=== PATIENT | male | born 1960 | race Caucasian/White ===

== ENCOUNTER 2024-11-03 07:02 | Inpatient (IN) | payer MEDICAID ==
[~2024-11-03] VITALS: Ht 182.9 cm; Wt 97.0 kg
--- NOTE | 2024-11-03 07:36 | ED.PDOC ---
HPI (NEURO) HPI Comments 64 year old male presents to the ED with a chief complaint of head injury s/p fall onset yesterday. Patient states he experienced a syncope episode yesterday, fell and hit his head. Patient woke up today experiencing headache as well as dizziness, described as room was spinning, improved when he closed his eyes and LT calf pain, had a DVT about 5 years ago. Upon ED arrival patient noticed symptoms have improved. Denies congestion, cough, nausea, vomiting, diarrhea, abdominal pain, chest pain, shortness of breath. No other symptoms or modifying factors present at this time. Chief Complaint: Headache Time Seen by MD: 07:29 Reviewed Notes: Medications, Allergies Information Source: Patient Mode of Arrival: Ambulatory Severity: Moderate Headache Severity: Moderate Timing: Days Duration: Since onset Prehospital treatment: None Headache Quality: Aching Headache Location: Generalized Onset: At rest Circumstances: Spontaneous Symptoms: Syncope, Vertigo, Change of vision Before: Normal After: Headache History of: None Modifying factors: Other (eyes closed ) Associated Signs and Symptoms: Headache, Blurred Vision Past Medical History PAST MEDICAL HISTORY: Denies Surgical History: Denies all surgeries Family History Family History: Unknown Social History Smoker: Non-Smoker Alcohol: Denies ETOH Use Drugs: Denies Drug Use Lives In: Home Constitutional: denies: chills, diaphoresis, fatigue, fever, malaise, sweats, weakness, others EENTM: denies: blurred vision, double vision, ear bleeding, ear discharge, ear drainage, ear pain, ear ringing, eye pain, eye redness, hearing loss, mouth pain, mouth swelling, nasal discharge, nose bleeding, nose congestion, nose pain, photophobia, tearing, throat pain, throat swelling, voice changes, others Respiratory: denies: cough, hemoptysis, orthopnea, SOB at rest, shortness of breath, SOB with excertion, stridor, wheezing, others Cardiovascular: denies: chest pain, dizzy spells, diaphoresis, Dyspnea on exertion, edema, irregular heart beat, left arm pain, lightheadedness, palpitati ons, PND, syncope, others Gastrointestinal: denies: abdomen distended, abdominal pain, blood streaked bowels, constipated, diarrhea, dysphagia, difficulty swallowing, hematemesis, melena, nausea, poor appetite, poor fluid intake, rectal bleeding, rectal pain, vomiting, others Genitourinary: denies: burning, dysuria, flank pain, frequency, hematuria, incontinence, penile discharge, penile sore, pain, testicle pain, testicle swelling, urgency, others Neurological: reports: dizziness, others (syncope, head injury ); denies: faint ing, headache, left sided numbness, left sided weakness, numbness, paresthesia, pre-existing deficit, right sided numbness, right sided weakness, seizure, speech problems, tingling, tremors, weakness Musculoskeletal: reports: others (LT calf pain ); denies: back pain, gout, joint pain, joint swelling, muscle pain, muscle stiffness, neck pain Integumetry: denies: bruises, change in color, change in hair/nails, dryness, laceration, lesions, lumps, rash, wounds, others Allergic/Immunocompromised: denies: Difficulty Healing, Frequent Infections, Hives, Itching, others Hematologic/Lymphatic: denies: anemia, blood clots, easy bleeding, easy bruising, swollen glands, others Endocrine: denies: excessive hunger, excessive sweating, excessive thirst, excessive urination, flushing, intolerance to cold, intolerance to heat, unexplained weight gain, unexplained weight loss, others Psychiatric: denies: anxiety, bipolar disorder, depression, hopeless, panic disorder, schizophrenia, sleepless, suicidal, others All Other Systems: Reviewed and Negative Physical Exam General Appearance: No Apparent Distress, Normal HEENT: Normal ENT Inspection, Pharynx Normal, TMs Normal Neck: Full Range of Motion, Non-Tender, Normal, Normal Inspection Respiratory: Chest Non-Tender, Lungs Clear, No Accessory Muscle Use, No Respiratory Distress, Normal Breath Sounds Cardiovascular: No Edema, No JVD, No Murmur, No Gallop, Normal Peripheral Pulses, Regular Rate/Rhythm Breast Exam: Deferred Gastrointestinal: No Organomegaly, Non Tender, No Pulsatile Mass, Normal Bowel Sounds, Soft Genitalia: Deferred Pelvic: Deferred Rectal: Deferred Extremities: Calf tenderness, Leg edema, Normal capillary refill, Normal inspection, Normal range of motion, Non-tender Musculoskeletal : Apperance: Normal Neurologic: Alert, accounting methods analyst II-XII nml as Tested, No Motor Deficits, Normal Affect, Normal Mood, No Sensory Deficits Cerebellar Function: Normal Reflexes: Normal Skin: Dry, Normal Color, Warm Lymphatic: No Adenopathy EKG EKG : Pulse Rate (adult): 186 Cardiac Rhythm: NSR (59) Block: LBBB Comments sinus rhythm with 59 bpm. Left bundle branch block Was a procedure done? Was a procedure done?: No X-Ray, Labs, Meds, VS Vital Signs Date Time Temp Pulse Resp B/P (MAP) Pulse Ox O2 Delivery O2 Flow Rate FiO2 11/03/24 10:39 97.4 55 16 134/81 (98) 97 97.4 11/03/24 10:39 55 16 97 Room Air 11/03/24 07:59 186 11/03/24 07:48 59 11/03/24 07:25 97.9 60 20 172/84 (113) 96 Lab Test 11/03/24 08:51 11/03/24 07:39 11/03/24 07:31 Range/Units Troponin I High Sensitivity < 3 L 3 L </=54 ng/L White Blood Count 5.8 4.4-10.8 10^3/uL Red Blood Count 5.40 4.5-5.90 10^6/uL Hemoglobin 16.3 13.5-17.5 g/dL Hematocrit 47.3 41.0-53.0 % Mean Corpuscular Volume 87.5 80.0-100.0 fL Mean Corpuscular Hemoglobin 30.2 28.0-32.0 pg Mean Corpuscular Hemoglobin Concent 34.5 32.0-36.0 g/dL Red Cell Distribution Width 12.9 11.8-14.3 % Platelet Count 225 140-450 10^3/uL Mean Platelet Volume 8.1 6.9-10.8 fL Neutrophils (%) (Auto) 73.1 37.0-80.0 % Lymphocytes (%) (Auto) 18.2 10.0-50.0 % Monocytes (%) (Auto) 7.9 0.0-12.0 % Eosinophils (%) (Auto) 0.6 0.0-7.0 % Basophils (%) (Auto) 0.2 0.0-2.0 % Neutrophils # (Auto) 4.2 1.6-8.6 10 ^3/uL Lymphocytes # (Auto) 1.1 0.4-5.4 10 ^3/uL Monocytes # (Auto) 0.5 0-1.3 10 ^3/uL Eosinophils # (Auto) 0 0-0.8 10 ^3/uL Basophils # (Auto) 0 0-0.2 10 ^3/uL Nucleated Red Blood Cells 0.0 % D-Dimer, Quantitative 0.71 H 0.0-0.49 mg/L FEU Sodium Level 135 L 136-145 mmol/L Potassium Level 4.4 3.5-5.1 mmol/L Chloride Level 102 98-107 mmol/L Carbon Dioxide Level 25 20-31 mmol/L Anion Gap 8 5-15 Blood Urea Nitrogen 15 9-23 mg/dL Creatinine 1.03 0.700-1.30 mg/dL Glomerular Filtration Rate Calc 82 >90 mL/min BUN/Creatinine Ratio 14.6 10.0-20.0 Serum Glucose 374 H 74-106 mg/dL Calcium Level 9.5 8.7-10.4 mg/dL Total Bilirubin 0.8 0.2-1.0 mg/dL Aspartate Amino Transferase (AST) 36 13-40 U/L Alanine Aminotransferase (ALT) 63 H 7-40 U/L Alkaline Phosphatase 78 46-116 U/L Total Protein 7.0 5.7-8.2 g/dL Albumin 4.5 3.2-4.8 g/dL POC Glucose 367 H 70-106 mg/dl [place] [address] Ph: [phone] DIAGNOSTIC IMAGING Diagnostic Imaging Report : [id number] Signed PATIENT: WOODY ESCOBAR ACCT: [id number] UNIT: [id number] : 1960 LOC: ER ROOM / BED: / AGE / SEX: 64 / M ADM STATUS: REG ER SERVICE 0729 ORDERING PHYSICIAN: ALEXX NYE MD PROCEDURE(s): HWOCT - HEAD WITHOUT CONTRAST REASON: dizziness ORDER NUMBER(s): [id number], ACCESSION NUMBER(s): [id number] EXAM: CT HEAD WITHOUT CONTRAST HISTORY: dizziness COMPARISON: None TECHNIQUE: Axial images were obtained and reformatted in coronal and sagittal planes. All CT scans at this medical facility are performed using dose modulation techniques as appropriate to a performed exam including the following: Automated exposure control was utilized; adjustment of the MA and/or KV according to patient size; and use of iterative reconstruction technique. CT Dose: CTDI volume is 57.79 mGy. Dose-length product is 926.35 mGy*cm FINDINGS: Supratentorial Region: No evidence for large acute territorial ischemia. No intracranial hemorrhage is noted. Posterior Fossa: No acute abnormality. Brainstem: Unremarkable. Sellar/Suprasellar Region: Unremarkable. Ventricles, Cisterns, Sulci: Age-appropriate. Orbits: Unremarkable. Paranasal Sinuses: Unremarkable. Mastoid Air Cells: Unremarkable. Vasculature: Intracranial arterial calcified plaque formation noted. Bones/Soft Tissues: No acute abnormality. Other: None. IMPRESSION: 1. No acute intracranial process. ATED BY: CYDNEY ZEPEDA MD DICTATED DATE/TIME: 11/03/24814 SIGNED BY: CYDNEY ZEPEDA MD SIGNED DATE/TIME: 11/03/24814 CC: [place] [address] Ph: [phone] DIAGNOSTIC IMAGING Diagnostic Imaging Report : [id number] Signed PATIENT: WOODY ESCOBAR ACCT: [id number] UNIT: [id number] : 1960 LOC: ER ROOM / BED: / AGE / SEX: 64 / M ADM STATUS: REG ER SERVICE 7 ORDERING PHYSICIAN: ALEXX NYE MD PROCEDURE(s): LLDVT - LT Lower DVT REASON: elevated ddimer and LLE pain ORDER NUMBER(s): [id number], ACCESSION NUMBER(s): [id number] Clinical History: elevated ddimer and LLE pain Comparison: None Technique: Duplex Doppler evaluation of the deep venous system of the left lower extremity from the common femoral vein to the popliteal vein including color Doppler and spectral/pulsed waveform analysis was performed. Findings: The common femoral vein demonstrates appropriate compressibility and waveform variability. There is compressibility/patency of the great saphenous vein at the proximal thigh. The femoral vein demonstrates appropriate compressibility and waveform variability. The deep femoral vein demonstrates appropriate compressibility and waveform variability. The popliteal vein demonstrates appropriate compressibility and waveform variability. There is normal compressibility at the tibioperoneal trunk. Impression: No left deep venous thrombosis. If clinical concern/symptoms persist or worsen, short-interval follow-up study is suggested. ATED BY: CRISTIN MARTELL MD DICTATED DATE/TIME: 11/03/24923 SIGNED BY: CRISTIN MARTELL MD SIGNED DATE/TIME: 11/03/24923 CC: X-Ray, Labs, Meds, VS Comment This 64-year-old male presents secondary to a syncopal episode where he could completely passed out for an unknown duration. Patient was complaining of right calf pain and chest discomfort. He was history of DVTs in the past. He had elevated D-dimer. As such, we will gently lower extremity CT of the chest were done. Both General show any acute pathology suggestive of a PE. However, secondary to the patient's history of syncope, I will admit the patient for further workup and management. Time of 1ST Reevaluation: 07:59 Reevaluation 1ST: Unchanged Patient Education/Counseling: Diagnosis, Treatment, Prognosis Family Education/Counseling: No Family Present Additional Information The following tests were ordered, and results were reviewed by me: D-DIMER, TROP -x3, CBC, CMP,L CT HEAD WITHOUT CONTRAST, EKG I reviewed and agreed with the following test results read by other providers: CT HEAD WITHOUT CONTRAST, I discussed treatment and results with medical personnel and patient Departure 1 Departure Time of Disposition: 11:57 Impression: Primary Impression: Syncope Additional Impression: Calf pain Disposition: ADMITTED INPATIENT Admit to: Tele Condition: Serious Critical Care Note Critical Care Time?: No Stability Stability form required: No I personally scribed for ALEXX NYE MD ([email or web address]) on 11/03/24 at 07:36. Electronically submitted by Stefany Sky ([email or web address]). I personally scribed for ALEXX NYE MD ([email or web address]) on 11/03/24 at 07:37. Electronically submitted by Stefany Sky ([email or web address]). I personally scribed for ALEXX NYE MD ([email or web address]) on 11/03/24 at 07:59. Electronically submitted by Stefany Sky ([email or web address]). I personally scribed for [facility]E MD [facility] on 11/03/24 at 08:34. Electronically submitted by Stefany Sky ([email or web address]). I personally scribed for ALEXX NYE MD ([facility]) on 11/03/24 at 08:38. Electronically submitted by Stefany Sky ([email or web address]). I personally scribed for [facility]E MD [facility] on 11/03/24 at 09:33. Electronically submitted by Stefany Sky ([email or web address]). I personally scribed for ALEXX NYE MD ([facility] on 11/03/24 at 09:33. Maci ctronically submitted by Stefany Sky ([email or web address]). ALEXX NYE MD Nov 03, 2024 07:36
--- NOTE | 2024-11-03 07:50 | ECG ---
[facility] Test Date: 2024-11-03 Test Time: 07:48:44 Pat Name: WOODY ESCOBAR Department: ER Room: Gender: M [employer]: KATEY : 1960 Requested By: ALEXX NYE Order Number: [id number] Reading MD: Phani Matos Measurements Intervals [place] Rate: 59 P: 44 DE: 186 QRS: -21 QRSD: 153 T: 97 QT: 479 QTc: 475 Interpretive Statements Sinus rhythm Left bundle branch block Electronically Signed On 11-03-2024 13:17:53 PST by Phani Matos Please click the below link to view image of tracing.
[2024-11-03 07:54] LABS: Basophils # (auto) 0 10 ^3/uL (0-0.2); Basophils % (auto) 0.2 % (0.0-2.0); Eosinophils # (auto) 0 10 ^3/uL (0-0.8); Eosinophils % (auto) 0.6 % (0.0-7.0); Hematocrit 47.3 % (41.0-53.0); Hemoglobin 16.3 g/dL (13.5-17.5); Lymphocytes # (auto) 1.1 10 ^3/uL (0.4-5.4); Lymphocytes % (auto) 18.2 % (10.0-50.0); Mean Corpuscular Hemoglobin 30.2 pg (28.0-32.0); Mean Corpuscular Hgb Conc. 34.5 g/dL (32.0-36.0); Mean Corpuscular Volume 87.5 fL (80.0-100.0); Monocytes # (auto) 0.5 10 ^3/uL (0-1.3); Monocytes % (auto) 7.9 % (0.0-12.0); Neutrophils # (auto) 4.2 10 ^3/uL (1.6-8.6); Neutrophils % (auto) 73.1 % (37.0-80.0); Platelet Count (auto) 225 10^3/uL (140-450); Red Cell Distribution Width 12.9 % (11.8-14.3); White Blood Cell 5.8 10^3/uL (4.4-10.8)
[2024-11-03 08:04] LABS: Albumin 4.5 g/dL (3.2-4.8); Alkaline Phosphatase 78 U/L (46-116); Anion Gap 8 (5-15); Aspartate Aminotransferase 36 U/L (13-40); BUN/Creatinine Ratio 14.6 (10.0-20.0); Bilirubin, Total 0.8 mg/dL (0.2-1.0); Blood Urea Nitrogen 15 mg/dL (9-23); Calcium 9.5 mg/dL (8.7-10.4); Carbon Dioxide 25 mmol/L (20-31); Chloride 102 mmol/L (98-107); Potassium 4.4 mmol/L (3.5-5.1)
[2024-11-03 08:05] LABS: Sodium 135 mmol/L (136-145)
[2024-11-03 08:06] LABS: Alanine Aminotransferase 63 U/L (7-40); Glucose 374 mg/dL (74-106)
--- NOTE | 2024-11-03 08:17 | DVH ---
EXAM: CT HEAD WITHOUT CONTRAST HISTORY: dizziness COMPARISON: None TECHNIQUE: Axial images were obtained and reformatted in coronal and sagittal planes. All CT scans at this medical facility are performed using dose modulation techniques as appropriate t o a performed exam including the following: Automated exposure control was utilized; adjustment of th e MA and/or KV according to patient size; and use of iterative reconstruction technique. CT Dose: CTDI volume is 57.79 mGy. Dose-length product is 926.35 mGy*cm FINDINGS: Supratentorial Region: No evidence for large acute territorial ischemia. No intracranial hemorrhage is noted. Posterior Fossa: No acute abnormality. Brainstem: Unremarkable. Sellar/Suprasellar Region: Unremarkable. Ventricles, Cisterns, Sulci: Age-appropriate. Orbits: Unremarkable. Paranasal Sinuses: Unremarkable. Mastoid Air Cells: Unremarkable. Vasculature: Intracranial arterial calcified plaque formation noted. Bones/Soft Tissues: No acute abnormality. Other: None. IMPRESSION: 1. No acute intracranial process.
[2024-11-03] MEDS: IOHEXOL 350 MG/ML 100ML IJ ONE (08:38)
--- NOTE | 2024-11-03 09:25 | DVH ---
Clinical History: elevated ddimer and LLE pain Comparison: None Technique: Duplex Doppler evaluation of the deep venous system of the left lower extremity from the common femor al vein to the popliteal vein including color Doppler and spectral/pulsed waveform analysis was perfo rmed. Findings: The common femoral vein demonstrates appropriate compressibility and waveform variability. There is compressibility/patency of the great saphenous vein at the proximal thigh. The femoral vein demonstrates appropriate compressibility and waveform variability. The deep femoral vein demonstrates appropriate compressibility and waveform variability. The popliteal vein demonstrates appropriate compressibility and waveform variability. There is normal compressibility at the tibioperoneal trunk. Impression: No left deep venous thrombosis. If clinical concern/symptoms persist or worsen, short-interval follow-up study is suggested.
--- NOTE | 2024-11-03 10:07 | DVH ---
CLINICAL INFORMATION: 64 years old, Male; elevated ddimer. TECHNIQUE: Axial CTA images of the chest were obtained after the uneventful administration of 100 mL of Omnipaque 350 IV contrast. Coronal and sagittal reformatted images and MIP images were obtained, reviewed, and stored. One or more of the following dose reduction techniques were used: Automated exp osure control. Adjustment of mA and/or kV according to patient size. CTDIvol = 23.83, 17.76, 0.07, 0.07 mGy DLP = 898.26 mGy-cm COMPARISON: None FINDINGS: Pulmonary arteries: No evidence of pulmonary embolism. Aorta: No aneurysm or dissection. Cardiac: Heart size is within normal limits. Dense coronary artery calcification. Mediastinum/radames: No mass or adenopathy. Lungs: Respiratory motion artifact limits evaluation for subtle findings. Atelectasis in the lung bas es. No focal consolidation. No pneumothorax or pleural effusion. Mild ground-glass attenuation in the lower lobes, may be due to respiratory motion artifact and/or subsegmental atelectasis. Infectious o r inflammatory etiology would be less likely but not excluded. Chest wall: No mass or other abnormality. Upper abdomen: Hepatic steatosis. Bones: No fracture or suspicious intraosseous lesions. IMPRESSION: 1. No evidence of pulmonary embolism. 2. Respiratory motion artifact limits evaluation for subtle findings. Ground-glass attenuation in the lower lobes may be due to respiratory motion artifact and/or subsegmental atelectasis. Infectious or inflammatory etiology would be less likely but not excluded in the appropriate clinical setting. Cor relate with clinical findings. 3. Otherwise, no evidence of acute disease in the chest. 4. Additional nonacute findings as detailed above
[2024-11-03 12:48] VITALS: PULSE 60; RESP 16; O2SAT 96
[2024-11-03] MEDS ORDERED: ACETAMINOPHEN 325 MG TAB PO PRN (14:45)
[2024-11-03] MEDS ORDERED: DOCUSATE SOD 100 MG CAP PO PRN (14:45)
[2024-11-03] MEDS ORDERED: HYDROcodone-ACET 5/325MG TAB PO PRN (14:45)
[2024-11-03] MEDS ORDERED: ONDANSETRON HCL 4 MG/2 ML VIAL IV PRN (14:45)
[2024-11-03] MEDS ORDERED: DEXTROSE (50%) 50ML SYRG IV PRN (14:45)
--- NOTE | 2024-11-03 15:04 | DVHHP2 ---
Admitting Diagnosis: Syncope History of Present Illness 64 year old male presents to the ED with a chief complaint of head injury s/p fall onset yesterday. Patient states he experienced a syncope episode yesterday, fell and hit his head. Patient woke up today experiencing headache as well as dizziness, described as room was spinning, improved when he closed his eyes and LT calf pain, had a DVT about 5 years ago. Upon ED arrival patient noticed symptoms have improved. Denies congestion, cough, nausea, vomiting, diarrhea, abdominal pain, chest pain, shortness of breath. No other symptoms or modifying factors present at this time. PAST MEDICAL HISTORY: Denies Surgical History: Denies all surgeries Family History Family History: Unknown Social History Smoker: Non-Smoker Alcohol: Denies ETOH Use Drugs: Denies Drug Use Lives In: Home Allergies: Coded Allergies: NO KNOWN ALLERGIES (Unverified , 11/03/24) Current Medications Current Medications Medications (Trade) Dose Ordered Sig/Belinda Route PRN Reason Start Time Stop Time Status Last Admin Sodium Chloride (Saline Lock Ns) 10 ml Q8HR IV 11/03/24 22:00 UNV Docusate Sodium (Colace Capsule) 100 mg BIDPRN PRN PO FOR CONSTIPATION 11/03/24 14:45 UNV Acetaminophen (Tylenol Tablet) 650 mg Q6HP PRN PO PAIN SCALE 1-3 OR TEMP>100.4 11/03/24 14:45 UNV Acetaminophen/ Hydrocodone Bitart ([place] 5/325MG Tab) 1 tab Q4HP PRN PO MODERATE PAIN (4-6 PAIN SCALE) 11/03/24 14:45 UNV Ondansetron HCl (Zofran) 4 mg Q4HP PRN IV NAUSEA / VOMITING 11/03/24 14:45 UNV Enoxaparin Sodium (Lovenox) 40 mg DAILY SC 11/04/24 10:00 UNV Diagnostic Test (Pha) (Accu-Chek Comfort Curve T) 1 strip ACHS 11/03/24 17:00 UNV Insulin Human Regular (InsuLIN R) ACHS SC 11/03/24 17:00 UNV Dextrose 50 ml UD PRN IV Blood Sugar LESS THAN 60 11/03/24 14:45 UNV Vital Signs Vital Signs Date Time Temp Pulse Resp B/P (MAP) Pulse Ox O2 Delivery O2 Flow Rate FiO2 1/31/25 12:48 60 16 96 Room Air* 0 21 11/03/24 12:48 98.5 134/67 (89) 98.5 Physical Exam 64 years old male, well nourished well developed sitting on chair. No apparent distress HEENT-positive open scar, clean base no gross bleeding at the occipital region. Normocephalic Heart-regular rate and rhythm Lungs clear to auscultate bilaterally Abdomen soft nontender nondistended Musculoskeletal-no edema cyanosis Neuro-AO x3, no focal deficits Results Labs Test 11/03/24 08:51 11/03/24 07:39 11/03/24 07:31 Range/Units Troponin I High Sensitivity < 3 L </=54 ng/L White Blood Count 5.8 4.4-10.8 10^3/uL Red Blood Count 5.40 4.5-5.90 10^6/uL Hemoglobin 16.3 13.5-17.5 g/dL Hematocrit 47.3 41.0-53.0 % Mean Corpuscular Volume 87.5 80.0-100.0 fL Mean Corpuscular Hemoglobin 30.2 28.0-32.0 pg Mean Corpuscular Hemoglobin Concent 34.5 32.0-36.0 g/dL Red Cell Distribution Width 12.9 11.8-14.3 % Platelet Count 225 140-450 10^3/uL Mean Platelet Volume 8.1 6.9-10.8 fL Neutrophils (%) (Auto) 73.1 37.0-80.0 % Lymphocytes (%) (Auto) 18.2 10.0-50.0 % Monocytes (%) (Auto) 7.9 0.0-12.0 % Eosinophils (%) (Auto) 0.6 0.0-7.0 % Basophils (%) (Auto) 0.2 0.0-2.0 % Neutrophils # (Auto) 4.2 1.6-8.6 10 ^3/uL Lymphocytes # (Auto) 1.1 0.4-5.4 10 ^3/uL Monocytes # (Auto) 0.5 0-1.3 10 ^3/uL Eosinophils # (Auto) 0 0-0.8 10 ^3/uL Basophils # (Auto) 0 0-0.2 10 ^3/uL Nucleated Red Blood Cells 0.0 % D-Dimer, Quantitative 0.71 H 0.0-0.49 mg/L FEU Sodium Level 135 L 136-145 mmol/L Potassium Level 4.4 3.5-5.1 mmol/L Chloride Level 102 98-107 mmol/L Carbon Dioxide Level 25 20-31 mmol/L Anion Gap 8 5-15 Blood Urea Nitrogen 15 9-23 mg/dL Creatinine 1.03 0.700-1.30 mg/dL Glomerular Filtration Rate Calc 82 >90 mL/min BUN/Creatinine Ratio 14.6 10.0-20.0 Serum Glucose 374 H 74-106 mg/dL Calcium Level 9.5 8.7-10.4 mg/dL Total Bilirubin 0.8 0.2-1.0 mg/dL Aspartate Amino Transferase (AST) 36 13-40 U/L Alanine Aminotransferase (ALT) 63 H 7-40 U/L Alkaline Phosphatase 78 46-116 U/L Total Protein 7.0 5.7-8.2 g/dL Albumin 4.5 3.2-4.8 g/dL POC Glucose 367 H 70-106 mg/dl Primary Diagnosis Syncope Presyncope head trauma from fall Plan ct headache - no AIH Pt had frequent presyncope, denies aura check orthostatic brain mri carotid doppler echocardiogram of heart cardiology consult Neurology consult neuro check per floor potocol wound care for posterior scalp lesion Full code regular diet no gi ppx lovenox for dvt ppx Plan discussed with: Patient Problems List: (1) Fall (2) Scalp lesion (3) Syncope Status: Acute Date of Service: Nov 03, 2024 Billing Provider: FLOR ROBERTO MD Common Visit Codes: 30769-HFPNLPT INP/OBS CARE (HIGH) FLOR ROBEROT MD Nov 03, 2024 15:04
--- NOTE | 2024-11-03 15:19 | DVH ---
CAROTID ARTERIAL DOPPLER CLINICAL HISTORY: syncope TECHNIQUE: Doppler study of bilateral carotid/vertebral arteries were performed. Comparison: None FINDINGS: The bilateral common carotid, external and internal carotid arteries appear patent without hemodynami rosana significant stenosis. There is no significant flow limiting plaque formation identified.The sp ectral wave forms and peak systolic velocities are within normal limits. Antegrade flow is present within the vertebral arteries with appropriate velocities and waveforms. Right ICA/CCA PSV ratio = 1.1. Left ICA/CCA PSV ratio = 0.8 . IMPRESSION: 1. No hemodynamically significant stenosis within the carotid arteries. HS:Y
[2024-11-03 15:22] VITALS: BP 160/73; PULSE 57; RESP 16; TEMP 97.8; O2SAT 96
[2024-11-03 15:30] VITALS: BP 160/73; PULSE 57; RESP 16; TEMP 97.8; O2SAT 3
[2024-11-03] MEDS: LACTATED RINGER'S 1,000 ML IV ONE (15:49)
[2024-11-03] MEDS: ACCU-CHEK COMFORT CURVE STRIP VI SCH (16:55)
[2024-11-03 17:00] VITALS: BP 137/68; PULSE 56; RESP 17; TEMP 98.6; O2SAT 3
[2024-11-03] MEDS: InsuLIN REG 1unit/0.01ml Soln (100units/ml) SC SCH (18:33)
--- NOTE | 2024-11-03 18:34 | DVH ---
EXAM: MRI BRAIN HEAD WO CONTRAST HISTORY: syncope COMPARISON: None TECHNIQUE: MRI was performed utilizing multiple appropriate imaging planes and pulse sequences. FINDINGS: SUPRATENTORIAL REGION: No evidence for acute ischemia or intracranial hemorrhage. Few subcentimeter ill-defined FLAIR hyperintensities are noted within the bilateral periventricular region, varma radi gabby and subcortical white matter. POSTERIOR FOSSA: Unremarkable. BRAINSTEM: Unremarkable. SELLAR/SUPRASELLAR REGION: Unremarkable. VENTRICLES, CISTERNS, SULCI: Age-appropriate. ORBITS: Unremarkable. PARANASAL SINUSES: Unremarkable. MASTOID AIR CELLS: Unremarkable. VASCULATURE: Unremarkable. BONES/ SOFT TISSUES: Unremarkable. OTHER: None. IMPRESSION: 1. No acute intracranial process identified. 2. Mild chronic microvascular ischemic changes.
[2024-11-03] MEDS ORDERED: LISI40TA16 PO (19:58)
[2024-11-03] MEDS ORDERED: METF500S3 PO (20:01)
[2024-11-03] MEDS ORDERED: ATOR-507 PO (20:01)
[2024-11-03] MEDS: SODIUM CHLOR 0.9% PF (SALINE LOCK) 10ML VIAL/SYR IV SCH (22:00)
[2024-11-03 23:36] VITALS: BP 116/61; PULSE 56; RESP 18; TEMP 98.3; O2SAT 95
[2024-11-04 01:00] VITALS: BP 146/72; PULSE 54; RESP 13; TEMP 98; O2SAT 97
[2024-11-04 05:00] VITALS: BP 142/59; PULSE 69; RESP 14; TEMP 97.8; O2SAT 98
[2024-11-04 08:00] VITALS: PULSE 53
[2024-11-04 08:38] VITALS: BP 139/63; PULSE 56; RESP 18; TEMP 98; O2SAT 92
[2024-11-04] MEDS: ENOXAPARIN SOD 40 MG/0.4 ML SYRINGE SC SCH (09:19)
[2024-11-04 12:57] VITALS: BP 156/79; PULSE 58; RESP 18; TEMP 97.5; O2SAT 95
[2024-11-04] MEDS ORDERED: KETO2AER3 EX ×2 (15:32→16:50)
[2024-11-04 16:39] VITALS: BP 139/74; PULSE 54; RESP 20; TEMP 98.3; O2SAT 96
[2024-11-04] MEDS ORDERED: METF500S3 PO (16:50)
[2024-11-04] MEDS ORDERED: LISI40TA16 PO (16:50)
[2024-11-04] MEDS ORDERED: ATOR-507 PO (16:50)
--- NOTE | 2024-11-04 16:52 | DVHDS2 ---
Discharge Summary Date of Admission Nov 03, 2024 at 14:40 Date of Discharge: Nov 04, 2024 Labs/Diagnostic Data: Laboratory Results Test 11/04/24 11:27 11/03/24 08:51 11/03/24 07:39 POC Glucose 274 mg/dl (70-106) Troponin I High Sensitivity < 3 ng/L (</=54) White Blood Count 5.8 10^3/uL (4.4-10.8) Red Blood Count 5.40 10^6/uL (4.5-5.90) Hemoglobin 16.3 g/dL (13.5-17.5) Hematocrit 47.3 % (41.0-53.0) Mean Corpuscular Volume 87.5 fL (80.0-100.0) Mean Corpuscular Hemoglobin 30.2 pg (28.0-32.0) Mean Corpuscular Hemoglobin Concent 34.5 g/dL (32.0-36.0) Red Cell Distribution Width 12.9 % (11.8-14.3) Platelet Count 225 10^3/uL (140-450) Mean Platelet Volume 8.1 fL (6.9-10.8) Neutrophils (%) (Auto) 73.1 % (37.0-80.0) Lymphocytes (%) (Auto) 18.2 % (10.0-50.0) Monocytes (%) (Auto) 7.9 % (0.0-12.0) Eosinophils (%) (Auto) 0.6 % (0.0-7.0) Basophils (%) (Auto) 0.2 % (0.0-2.0) Neutrophils # (Auto) 4.2 10 ^3/uL (1.6-8.6) Lymphocytes # (Auto) 1.1 10 ^3/uL (0.4-5.4) Monocytes # (Auto) 0.5 10 ^3/uL (0-1.3) Eosinophils # (Auto) 0 10 ^3/uL (0-0.8) Basophils # (Auto) 0 10 ^3/uL (0-0.2) Nucleated Red Blood Cells 0.0 % D-Dimer, Quantitative 0.71 mg/L FEU (0.0-0.49) Sodium Level 135 mmol/L (136-145) Potassium Level 4.4 mmol/L (3.5-5.1) Chloride Level 102 mmol/L (98-107) Carbon Dioxide Level 25 mmol/L (20-31) Anion Gap 8 (5-15) Blood Urea Nitrogen 15 mg/dL (9-23) Creatinine 1.03 mg/dL (0.700-1.30) Glomerular Filtration Rate Calc 82 mL/min (>90) BUN/Creatinine Ratio 14.6 (10.0-20.0) Serum Glucose 374 mg/dL (74-106) Calcium Level 9.5 mg/dL (8.7-10.4) Total Bilirubin 0.8 mg/dL (0.2-1.0) Aspartate Amino Transferase (AST) 36 U/L (13-40) Alanine Aminotransferase (ALT) 63 U/L (7-40) Alkaline Phosphatase 78 U/L (46-116) Total Protein 7.0 g/dL (5.7-8.2) Albumin 4.5 g/dL (3.2-4.8) Other Laboratory Tests 11/03/24 07:39 Brief Hx & Hospital Course: 64 year old male presents to the ED with a chief complaint of head injury s/p fall onset yesterday. Patient states he experienced a syncope episode yesterday, fell and hit his head. Patient woke up today experiencing headache as well as dizziness, described as room was spinning, improved when he closed his eyes and LT calf pain, had a DVT about 5 years ago. Upon ED arrival patient noticed symptoms have improved. The patient denies any lightheadedness dizziness or any syncope spells. Patient will be discharged home with close follow up as an outpatient with PCP and Neurology. [facility] neurology was consulted who recommended outpatient follow up. Condition at Discharge: Stable Final Diagnosis/Problems List Syncope resolved Orthostatic hypotension Diabetes mellitus type 2 Hypertension Dyslipidemia Left skin groin rash Discharge Disposition: Home SNF Discharge Will this Physician continue t: No Discharge Instruct/Medications Diet: Cardiac 2g Na,low cholest Diet comment: One thousand eight hundred ADA diet Activity: No Restrictions, As Tolerated Follow Up/Referral: Please follow with PCP in one week Follow up with the Neurology in one week Medications: Resume home medications Discharge Statement: "Patient was advised to return to the ER or call 911 if any headaches, dizziness, shortness of breath, chest pain, abdominal pain, bleeding, fevers, or worsening of medical condition. Patient was counseled about treatment plan, medications, possible side effects, patientverbalized understanding. All questions were answered to the best of my ability. This discharge took greater then 30 minutes in planning, reviewing documentation, counseling the patient, and discussing with other team members." ASSESSMENT ASSESSMENT Assessment Syncope resolved Orthostatic hypotension Diabetes mellitus type 2 Hypertension Dyslipidemia Left skin groin rash Date of Service: Nov 04, 2024 Billing Provider: LEIGH BARAHONA MD Common Visit Codes: 47582-GYM/OBS DISCH DAY >30min LEIHG BARAHONA MD Nov 04, 2024 16:52
--- NOTE | 2024-11-04 17:08 | DVHSR ---
APPROVED REPORT EXAM: Two-dimensional and M-mode echocardiogram with Doppler and color Doppler. Blood Pressure: 142/59 mmHg INDICATION Syncope RISK FACTORS Height: 6'0, Weight: 213 DIMENSIONS LVDd4.6 (3.8-5.7cm)LA (2D)3.2 (1.9-4.0cm)Aortic Root3.7 (2.0-3.7cm) LVDs2.8 (2.5-4.0cm)LA (MM) (1.9-4.0cm)Aortic Cusp Exc1.5 (1.5-2.0cm) EF (%) 60.0 (55-70%)Rt. Atrium3.0 (1.9-4.0cm)Asc. Aorta3.6 cm IVSd0.9 (0.7-1.1cm)RV (D) (1.8-2.4cm) PWd1.1 (0.7-1.1cm) Mitral Valve MitralMitral Stenosis E wave0.90m/sMV Mean GR.mmHg A wave1.22m/sMV Peak GR.128mmHg E/A ratio0.72D MVAcm2 DECEL [id number] 1/2 [place] Aortic Valve Aortic ValveAortic Stenosis V11.17m/Chandrakant Mean GR.4mmHg V21.31m/Chandrakant Peak GR.7mmHg LVOT Diameter2.0 (1.8-2.4cm)Doppler AVA2.80cm2 Pulmonic Valve V21.04m/s Tricuspid Valve TR Velocity2.05m/s [id number] LEFT VENTRICLE The left ventricle is normal size. There is normal left ventricular wall thickness. The left ventricle systolic function is borderline, LVEF is 50-55%. Mild diastolic dysfunction. Normal wall motion. RIGHT VENTRICLE The right ventricle is mildly dilated. The right ventricular systolic function is normal. ATRIA The left atrial size is normal. The right atrium size is normal. MITRAL VALVE The mitral valve is grossly normal. Mitral regurgitation is trace to mild. PULMONIC VALVE The pulmonic valve is not well visualized. TRICUSPID VALVE The tricuspid valve is grossly normal. There is trace tricuspid regurgitation. AORTIC VALVE The aortic valve is trileaflet. No aortic regurgitation is present. GREAT VESSELS The aortic root is normal size. PERICARDIAL EFFUSION No evidence of pericardial effusion. Conclusion The left ventricle is normal size. There is normal left ventricular wall thickness. The left ventricl e systolic function is borderline, LVEF is 50-55%. Mild diastolic dysfunction. The right ventricle is mildly dilated. The right ventricular systolic function is normal. The left and right atrial size is normal. No significant valvular abnormalities. No evidence of pericardial effusion.
--- NOTE | 2024-11-05 09:47 | ECG ---
[facility] Test Date: 2024-11-04 Test Time: 13:05:18 Pat Name: WOODY ESCOBAR Department: Respiratoy Room: 0288T B Gender: M Residential Care Facility Manager: : 1960 Requested By: CATA BANEGAS Order Number: [id number] Reading MD: Measurements Intervals [place] Rate: 55 P: 13 OR: 205 QRS: -27 QRSD: 150 T: 96 QT: 463 QTc: 443 Interpretive Statements Sinus rhythm Left bundle branch block Please click the below link to view image of tracing.
--- NOTE | 2024-11-05 09:47 | ECG ---
[facility] Test Date: 2024-11-04 Test Time: 13:06:14 Pat Name: WOODY ESCOBAR Department: Respiratoy Room: 0288T B Gender: M Marketing Intern: : 1960 Requested By: CATA BANEGAS Order Number: [id number] Reading MD: Measurements Intervals [place] Rate: 54 P: 14 CT: 203 QRS: -29 QRSD: 151 T: 94 QT: 470 QTc: 446 Interpretive Statements Sinus rhythm Left bundle branch block Baseline wander in lead(s) V1 Please click the below link to view image of tracing.
== END 2024-11-04 18:11 | disposition home or self-care (01) | DRG 204 ==
LOC: ER 07:02 → TELE 14:40 → TELE-WESTW 23:45
PROVIDERS: ADMIT Internal Medicine; ATTEND Internal Medicine
DX: I95.1 Orthostatic hypotension (principal); S09.90XA Unspecified injury of head, initial encounter; E11.9 Type 2 diabetes mellitus without complications; I10 Essential (primary) hypertension; E78.5 Hyperlipidemia, unspecified; R21 Rash and other nonspecific skin eruption; W18.39XA Other fall on same level, initial encounter; Y93.89 Activity, other specified; Y92.89 Other specified places as the place of occurrence of the external cause; Y99.8 Other external cause status
CPT/HCPCS: 36415; 70450; 70551; 71275; 80053; 82962; 84484; 85025; 85379; 93005; 93306; 93886; 93971; G0378; J1815